=== PATIENT | male | born 1990 | race Caucasian/White ===

== ENCOUNTER → 2019-11-09 | Day surgery (SDC) | payer BC ==
[~2019-11-09] MED LIST: LISINOPRIL20 MG PO; NORVASC5 MG PO; PERCOCET 10-321 EAC1 PO
--- NOTE | 2019-11-09 10:25 | EKG ---
[place] [address] ELECTROCARDIOGRAM REPORT Name: LISA FARIAS Room: [facility]#: [id number] Admission: 11/09/19 Attend Phys: Cintia Ulloa, Discharge: Date of : 89 Date of Service: 11/09/19 0739 Report #: [id number] THIS REPORT FOR: //name// Test Date: 2019-11-09 Test Time: 07:39:51 Pat Name: LISA FARIAS Department: Room: Gender: M Cattle Manager: : 1990 Requested By: Cintia Ulloa Order Number: [id number] Edi MD: Rishabh Masters Measurements Intervals [place] Rate: 79 P: 51 ND: 146 QRS: 63 QRSD: 100 T: 28 QT: 379 QTc: 435 Interpretive Statements Sinus rhythm No previous ECG available for comparison Electronically Signed On 11-09-2019 10:24:48 CDT by Rishabh Masters [email or web address] <ELECTRONICALLY SIGNED> By: Rishabh Masters MD, [facility] 11/09/19 1024 0739 8 Rishabh Masters MD, FACC /EPI
--- NOTE | 2019-11-10 07:34 | OP ---
[address] [address] OPERATIVE REPORT Name: LISA FARIAS Room: [facility]#: [id number] Admission: 11/09/19 Attend Phys: Cintia Ulloa DO Discharge: Date of : [birth year] Report #: [id number] THIS REPORT FOR: //name// cc: Alexi Richards Herbert E. DO ~ THIS REPORT FOR: //name// CC: Cintia Richards DICTATED BY: Felice Elena DO DATE OF SERVICE: 11/09/2019 PRIMARY CARE PHYSICIAN: Alexi Richards MD PREOPERATIVE DIAGNOSIS: Supraumbilical hernia. POSTOPERATIVE DIAGNOSIS: Incarcerated supraumbilical hernia without obstruction. FINDINGS: A 1 x 1.5 cm defect containing incarcerated omentum. SURGEON: Cintia Ulloa DO. CO-SURGEON: Felice Elena DO, PGY3 TRUCK LOADER: None. PROCEDURE PERFORMED: Repair of incarcerated supraumbilical hernia with mesh. ANESTHESIA: General and local and TAP blocks. ESTIMATED BLOOD LOSS: 3 mL. SPECIMENS REMOVED: Incarcerated omentum and hernia sac. COMPLICATIONS: None. IMPLANTS: A 4.3 cm [place] Ventralex ST mesh. HISTORY OF PRESENT ILLNESS: The patient is a 29-year-old male who presented to the office with complaint of epigastric abdominal pain. On exam, we did find an incarcerated epigastric hernia. Risks, benefits and alternatives to a hernia repair were discussed at length and he agreed [place] [address] OPERATIVE REPORT Name: LISA FARIAS Room: [facility]#: [id number] Admission: 11/09/19 Attend Phys: Cintia Ulloa DO Discharge: Date of : [birth year] Report #: [id number] DESCRIPTION OF PROCEDURE: After consent was obtained, the patient was taken to the operating room and placed in the supine position. SCDs applied to bilateral lower extremities, safety belt placed across the patient's waist. Ancef 3 grams given for surgical prophylaxis. The patient underwent general endotracheal anesthesia without complication. Bilateral TAP blocks were performed by the anesthesiologist. The patient was then prepped and draped in the standard sterile fashion. A timeout was performed to confirm the patient and procedure. At this point, a 5 mL of 0.5% Marcaine was injected in the supraumbilical plane for local anesthesia. A vertical incision was made with a 10 blade scalpel. Electrocautery was used for hemostasis and to dissect down to the level of the hernia sac. Once the hernia sac was encountered, it was circumferentially dissected out using blunt dissection with a hemostat and also a combination of electrocautery to encircle the hernia sac. Once we reached the fascia circumferentially around the hernia sac, the hernia contents with a significant amount of omentum and this was not going to be able to be reduced; therefore, we elected to transect the herniated contents with the electrocautery. The incarcerated omentum was sent for pathologic evaluation. The hernia defect measured 1 x 1.5 cm and we elected to place a small 4.[address] [place] mesh. Once we placed the mesh intraabdominally, we secured the mesh to the anterior abdominal wall using a 2 stitches of 0 Prolene. We then used one stitch of 0 Prolene in a [id number] fashion to reapproximate the overlying fascia, taking care to include the underlying mesh. At this point, the hernia defect was completely repaired. There was no evidence of herniation around the mass. We then did a layered closure of the subcutaneous tissue using 3-0 Vicryl and closed the skin in a running subcuticular fashion using 4-0 Monocryl. Sterile skin glue was applied over top of the incision. All needle, instrument, and sponge counts were correct at the completion of the case and the patient was awoken from general anesthesia and transferred to PACU in stable condition. <ELECTRONICALLY SIGNED> By: Cintia Ulloa DO 11/10/19 0734 [id number] [id number] manuel Ulloa DO /nt
--- NOTE | 2019-11-10 17:07 | PATH ---
[address] [address] PATHOLOGY RPT PROCEDURE Name: DINORALISA [id number] Admission: 11/09/19 Date of : [birth year] Discharge: Report #: [id number] Path Case #: [id number] [facility] Accession Number: [id number] . 01 Material submitted: . hernia - HERNIA SAC AND CONTENTS . 01 Clinical history: . Pre-op diagnosis: Ventral hernia Post-op diagnosis: Incisional hernia . 02 Diagnosis: Hernia sac and contents: - Benign mesothelial-lined fibromembranous/fibrofatty tissue with mild acute and chronic inflammation and prominent fibrosis. (MACARENA:kristy; 11/10/2019) [facility] 11/10/2019 1549 Local . 02 Electronically signed: . Donta Lopez MD, Pathologist NPI- [id number] . 01 Gross description: . The specimen is received in formalin, labeled "Lisa Dangelo, hernia sac and contents". Received is a segment of fibroadipose tissue with attached fibromembranous measuring 4.8 x 4.1 x 3.6 cm in greatest dimensions. No distinct nodules or lesions are noted grossly. The specimen is submitted representatively in cassette A1. (CAA; 11/09/2019) QA/[facility] 11/09/2019 1554 Local . 02 Pathologist provided ICD-10: K43.2 . 02 CPT . 866832 Specimen Comment: A courtesy copy of this report has been sent to [phone], [phone] Specimen Comment: [phone] Specimen Comment: Report sent to / DR LIAO Performed at: 01 [facility] [address], [place], [place] [id number] MD Brian Sylvester MD Phone: [phone] Performed at: 02 [facility] [address], [place], [place] [id number] MD Donta Lopez MD Phone: [phone]
== END | disposition home or self-care (01) ==
LOC: M.SUR 05:28
PROVIDERS: ATTEND Surgery
DX: K43.6 Other and unspecified ventral hernia with obstruction, without gangrene (principal); Z11.59 Encounter for screening for other viral diseases; Z79.899 Other long term (current) drug therapy